=== PATIENT | female | born 1985 | race Caucasian/White ===

== ENCOUNTER 2019-08-21 12:38 | Outpatient (CLI) | payer OTHER ==
[~2019-08-21] VITALS: Ht 165.1 cm; Wt 52.6 kg
[2019-08-21 15:56] VITALS: BP 133/70
--- NOTE | 2019-08-22 05:30 | Consultation ---
DATE OF CONSULTATION: 08/21/2019 CHIEF COMPLAINT: GERD. HISTORY OF PRESENT ILLNESS: The patient is a 34-year-old female referred to us for evaluation of GERD. According to the patient, she has been having GERD for many years. She saw a manager wound care who changed her diet and she is feeling a lot better, but she is little bit concerned still and she wants to have an endoscopy. PAST MEDICAL HISTORY: GERD. PAST SURGICAL HISTORY: None. MEDICATIONS: None. FAMILY HISTORY: Mother had liver cancer. SOCIAL HISTORY: The patient denies any tobacco, alcohol, or drug abuse. ALLERGIES: No known drug allergies. REVIEW OF SYSTEMS: Positive for GERD, minimum 23 pounds of weight loss. No change in bowel habit. No GI bleeding. PHYSICAL EXAMINATION: VITAL SIGNS: Temperature 98, blood pressure 133/70, pulse 57, respiratory rate 20. HEENT: Normocephalic and atraumatic. Sclerae anicteric. NECK: Supple. No evidence of obvious lymphadenopathy. CARDIOVASCULAR: Regular rate and rhythm. Plus S1 and S2. No obvious murmur. LUNGS: Clear to auscultation bilaterally. ABDOMEN: Positive bowel sounds. Soft and nontender. No rebound. No guarding. No peritoneal sign. EXTREMITIES: No cyanosis. No clubbing. No edema. ASSESSMENT AND PLAN: The patient is a 34-year-old female, need for endoscopy for chronic GERD. The patient was given the risks and benefits of procedure and she agreed to it. Plan to get authorization and schedule for endoscopy. Lior Wilson M.D. DR: Hector JOB#: [id number] CC:
== END 2019-08-21 15:55 | disposition home or self-care (01) ==
LOC: PAN 12:38
DX: K21.9 Gastro-esophageal reflux disease without esophagitis (principal)